=== PATIENT | male | born 1990 | race Caucasian/White ===

== ENCOUNTER → 2020-11-19 | Outpatient (REF) | payer OTHER, MEDICAID ==
[~2020-11-19] MED LIST: ADDE1TAB14 PO; BUSP10TA PO; BUSP5TA PO; HYDR-3363 PO; HYDR-643 PO; RISP0.5T21 PO; RISP1TAB42 PO; TRAZ1TAB10 PO; TRAZ1TAB6 PO
== END ==
LOC: M LAB REF 17:27
PROVIDERS: ATTEND Physician Assistant Medical
DX: Z11.59 Encounter for screening for other viral diseases (principal)